=== PATIENT | female | born 1940 | race Two or more races ===

== ENCOUNTER 2018-01-06 19:04 | Emergency (ER) | payer MEDICARE, OTHER, MEDICAID ==
[2018-01-06] MEDS: DIPHTH/TET/ACEL PERTUSS (ADULT) 0.5 ML VIAL IM* (21:27)
== END 2018-01-06 21:44 | disposition home or self-care (01) ==
LOC: FTE 19:04
DX: S91.032A Puncture wound without foreign body, left ankle, initial encounter (principal); I10 Essential (primary) hypertension; E11.9 Type 2 diabetes mellitus without complications; W54.0XXA Bitten by dog, initial encounter; Y92.9 Unspecified place or not applicable; Z23 Encounter for immunization; Z79.01 Long term (current) use of anticoagulants; Z79.82 Long term (current) use of aspirin
CPT/HCPCS: 90471; 90715; 99283-25